=== PATIENT | female | born 1970 | race Native Hawaiian/Other Pacific Islander ===

== ENCOUNTER 2016-09-18 16:53 | Emergency (ER) | payer OTHER ==
[~2016-09-18] VITALS: Ht 167.6 cm; Wt 104.3 kg
[2016-09-18 17:00] VITALS: BP 176/104; TEMP 98
== END 2016-09-18 19:00 | disposition home or self-care (01) ==
LOC: ED 16:53
DX: R20.9 Unspecified disturbances of skin sensation (principal)
CPT/HCPCS: 99283